=== PATIENT | male | born 1960 | race Caucasian/White ===

== ENCOUNTER 2020-10-19 16:13 | Emergency (ER) | payer BC ==
[~2020-10-19] VITALS: Ht 177.8 cm; Wt 79.4 kg
[2020-10-19] MEDS ORDERED: SYNTHROID88 MC1 PO (16:21)
[2020-10-19] MEDS ORDERED: PROTONIX40 M2 PO (16:22)
[2020-10-19 17:14] LABS: ABSOLUTE NEUTROPHILS 2.5 thou/uL (1.4-8.2); EOSINOPHILS 1.4 % (0.0-3.0); HEMATOCRIT 40.7 % (42.0-52.0); HEMOGLOBIN 13.8 gm/dL (14.0-18.0); LYMPHOCYTES 31.3 % (24.0-44.0); MCH 31.5 pg (26.0-34.0); MCHC 33.9 g/dL (28.0-37.0); MCV 92.7 fL (80.0-100.0); MONOCYTES 18.5 % (1.0-8.0); PLATELET COUNT 182 thou/uL (150-400); POLYS 47.8 % (36.0-66.0); RBC 4.39 mil/uL (4.50-6.00); RDW 13.6 % (10.5-14.5); WBC 5.1 thou/uL (4.0-11.0)
[2020-10-19 17:15] LABS: CALCIUM 8.7 mg/dL (8.5-10.1); CREATININE 0.9 mg/dL (0.7-1.3); POTASSIUM 3.8 mmol/L (3.5-5.1)
[2020-10-19 18:12] VITALS: BP 118/74
--- NOTE | 2020-10-20 06:59 | EKG ---
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
== END 2020-10-19 18:12 | disposition home or self-care (01) ==
LOC: ER 16:13
PROVIDERS: Physician Assistant
DX: R20.2 Paresthesia of skin (principal); D64.9 Anemia, unspecified; E87.1 Hypo-osmolality and hyponatremia; G62.9 Polyneuropathy, unspecified; Z88.1 Allergy status to other antibiotic agents